=== PATIENT | female | born 1965 | race African-American/Black ===

== ENCOUNTER 2017-05-07 00:48 | Emergency (ER) | payer SELFPAY ==
[~2017-05-07] VITALS: Ht 160 cm; Wt 72.6 kg
--- NOTE | 2017-05-07 01:06 | PHYS DOC ---
Adult General HPI HPI Patient is a 52 year old F who presents with right upper quadrant pain and nausea and vomiting. Patient states [facility] had worsening symptoms tonight with increased pain nausea and vomiting. Patient called EMS and they wanted to go [facility] however the [facility]. Patient denies any fevers. Patient denies any altered mental status. Patient denies any diarrhea. Patient denies any chest pain or shortness of breath. Review of Systems Review of Systems GEN: Denies fevers, chills, sweats HEENT: Denies blurred vision, sore throat CV: Denies chest pain RESP: Denies shortness of air, cough GI: Right upper quadrant pain with nausea and vomiting NEURO: Denies confusion, dizziness MSK: Denies weakness, joint pain/swelling Current Medications Current Medications Current Medications Medications (Trade) Dose Ordered Sig/Loki Start Time Stop Time Status Last Admin Dose Admin Hydromorphone HCl (Dilaudid) 1 mg 1X ONCE 05/07/17 01:15 05/07/17 01:16 UNV Ondansetron HCl (Zofran Odt) 4 mg 1X ONCE 05/07/17 01:15 05/07/17 01:16 UNV Sodium Chloride 1,000 ml @ 1,000 mls/hr 1X ONCE 05/07/17 01:15 05/07/17 02:14 UNV Physical Exam Physical Exam GEN.: No apparent distress. Alert and oriented. HEENT: Head is normocephalic, atraumatic NECK: Supple. LUNGS: CTAB. HEART: RRR, S1, S2 present. Peripheral pulses intact ABDOMEN: Soft, right upper quadrant tenderness palpation, with rebound tenderness. Positive bowel sounds. EXTREMITIES: Without any cyanosis. NEUROLOGIC: Normal speech, normal tone PSYCHIATRIC: Normal affect, normal mood. SKIN: No ulcerations Current Patient Data Lab Results Laboratory Tests Test 05/07/17 01:16 White Blood Count 6.9 x10^3/uL Red Blood Count 4.63 x10^6/uL Hemoglobin 11.8 g/dL Hematocrit 35.9 % Mean Corpuscular Volume 78 fL Mean Corpuscular Hemoglobin 26 pg Mean Corpuscular Hemoglobin Concent 33 g/dL Red Cell Distribution Width 16.9 % Platelet Count 231 x10^3/uL Neutrophils (%) (Auto) 60 % Lymphocytes (%) (Auto) 29 % Monocytes (%) (Auto) 6 % Eosinophils (%) (Auto) 4 % Basophils (%) (Auto) 1 % Neutrophils # (Auto) 4.1 x10^3uL Lymphocytes # (Auto) 2.0 x10^3/uL Monocytes # (Auto) 0.4 x10^3/uL Eosinophils # (Auto) 0.3 x10^3/uL Basophils # (Auto) 0.1 x10^3/uL Sodium Level 147 mmol/L Potassium Level 3.8 mmol/L Chloride Level 112 mmol/L Carbon Dioxide Level 29 mmol/L Anion Gap 6 Blood Urea Nitrogen 17 mg/dL Creatinine 0.9 mg/dL Estimated GFR (Cockcroft-Gault) 66.0 BUN/Creatinine Ratio 19 Glucose Level 84 mg/dL Calcium Level 8.1 mg/dL Total Bilirubin 0.1 mg/dL Aspartate Amino Transf (AST/SGOT) 21 U/L Alanine Aminotransferase (ALT/SGPT) 20 U/L Alkaline Phosphatase 99 U/L Total Protein 6.6 g/dL Albumin 2.7 g/dL Albumin/Globulin Ratio 0.7 Lipase 133 U/L Current Medications Medications (Trade) Dose Ordered Sig/Loki Route PRN Reason Start Time Stop Time Status Last Admin Dose Admin Sodium Chloride 1,000 ml @ 1,000 mls/hr 1X ONCE IV 05/07/17 01:15 05/07/17 02:14 DC 05/07/17 01:29 Ondansetron HCl (Zofran Odt) 4 mg 1X ONCE PO 05/07/17 01:15 05/07/17 01:47 DC 05/07/17 01:29 Hydromorphone HCl (Dilaudid) 1 mg 1X ONCE IV 05/07/17 01:15 05/07/17 01:47 DC 05/07/17 01:28 EKG EKG 0125: Normal sinus rhythm rate of 62 no STEMI [] Radiology/Procedures Radiology/Procedures Ultrasound right upper quadrant: , Bile duct measuring 9.7 mm, but her wall measuring 3.1 mm, multiple gallstones seen, no pericholecystic fluid [] Course & Med Decision Making Course & Med Decision Making Pertinent Labs and Imaging studies reviewed. (See chart for details) ED course: Patient was seen and examined in the emergency room on arrival CBC, CMP, UA, ultrasound right upper quadrant, lipase was ordered 0200: Updated patient on plan to admit to [facility] for her gallbladder 0210: Paged general surgery and hospitalist at [facility] 0225: Discussed CC/HP/PMH with Dr. Momin and recommends admit to [facility] and place him on consult 0233: Discussed CC/HP/PMH with Dr. Eng and recommends admit [] [] Dragon Disclaimer Dragon Disclaimer This chart was dictated in whole or in part using Voice Recognition software in a busy, high-work load, and often noisy Emergency Department environment. It may contain unintended and wholly unrecognized errors or omissions. Departure Departure: Impression: Primary Impression: Cholelithiasis Additional Impression: Right upper quadrant abdominal pain Disposition: 02 XFER SHT-TRM HOSP (Dr. Eng) Condition: IMPROVED Problem Qualifiers Primary Impression: Cholelithiasis Cholelithiasis location: gallbladder Cholecystitis presence: without cholecystitis Biliary obstruction: with biliary obstruction Qualified Codes: K80.21 - Calculus of gallbladder without cholecystitis with obstruction DONOVAN GUY DO May 07, 2017 01:06
[2017-05-07] MEDS ORDERED: HYDROmorphone PF 1 MG/ML DISP.SYRIN IV ONE (01:15)
[2017-05-07] MEDS ORDERED: ONDANSETRON ODT 4 MG TAB.RAPDIS PO ONE (01:15)
[2017-05-07] MEDS ORDERED: IV NORMAL SALINE 1,000ML 1,000 ML IV ONE (01:15)
[2017-05-07 01:31] LABS: BASO # 0.1 x10^3/uL (0.0-0.2); BASO % 1 % (0-3); EOS # 0.3 x10^3/uL (0.0-0.7); EOS % 4 % (0-3); HEMATOCRIT 35.9 % (36.0-47.0); HEMOGLOBIN 11.8 g/dL (12.0-15.5); LYMPH % 29 % (24-48); MEAN CORPUSCULAR HEMOGLOBIN 26 pg (25-35); MEAN CORPUSCULAR HGB CONC 33 g/dL (31-37); MEAN CORPUSCULAR VOLUME 78 fL (79-100); MONO # 0.4 x10^3/uL (0.0-1.1); MONO % 6 % (0-9); NEUT # 4.1 x10^3uL (1.8-7.7); NEUT % 60 % (31-73); PLATELET COUNT 231 x10^3/uL (140-400); RED BLOOD COUNT 4.63 x10^6/uL (3.50-5.40); RED CELL DISTRIBUTION WIDTH 16.9 % (11.5-14.5); WHITE BLOOD COUNT 6.9 x10^3/uL (4.0-11.0)
[2017-05-07 01:42] LABS: ALBUMIN 2.7 g/dL (3.4-5.0); ALBUMIN/GLOBULIN RATIO 0.7 (1.0-1.7); CALCIUM 8.1 mg/dL (8.5-10.1); CREATININE 0.9 mg/dL (0.6-1.0); TOTAL BILIRUBIN 0.1 mg/dL (0.2-1.0); TOTAL PROTEIN 6.6 g/dL (6.4-8.2)
[2017-05-07 01:53] LABS: POTASSIUM 3.8 mmol/L (3.5-5.1)
--- NOTE | 2017-05-07 02:01 | EKG ---
[address] [address] Test Date: 2017-05-07 Test Time: 01:22:16 Pat Name: DOMINICK MIRANDA Department: Room: Gender: F Test Rack Operator: TIANA : [id number] Requested By: DONOVAN GUY Order Number: [id number] Reading MD: Dickson Bermudez Measurements Intervals Hillister Rate: 62 P: 59 MI: 178 QRS: 72 QRSD: 94 T: 75 QT: 416 QTc: 424 Interpretive Statements SINUS RHYTHM Electronically Signed On 05-08-2017 15:07:03 CDT by Dickson Bermudez
[2017-05-07 03:15] VITALS: BP 105/67
--- NOTE | 2017-05-07 03:39 | RAD ---
Abdominal ultrasound right upper quadrant: Reason for examination: Right upper quadrant pain with nausea and vomiting for 3 hours. The liver appears be normal in size at 16.9 cm and homogeneous in echogenicity. There is fatty infiltration in the liver without a focal lesion. Pancreas is poorly visualized due to bowel gas. Visualized portion of the inferior vena cava shows no gross abnormality. Gallbladder appears be filled with gallstones gallbladder wall is mildly thickened at 3.6 mm. No pericholecystic fluid is present but there is a positive Parker sign. Common bile duct is dilated at 9.7 mm. The right kidney measures 9.8 x 5.5 x 4.3 cm in greatest dimension and shows normal cortical medullary differentiation and good vascular flow. There is no right renal mass. IMPRESSION: Cholelithiasis with cholecystitis. Dilated common bile duct at 9.7 mm. Positive Parker sign. Fatty infiltration in the liver. Electronically signed by: Mer Freeman MD (05/07/2017 3:36 AM) [facility]
== END 2017-05-07 03:19 | disposition short-term general hospital (02) ==
LOC: ER 00:48
DX: K80.21 Calculus of gallbladder without cholecystitis with obstruction (principal)
CPT/HCPCS: 36415; 76705; 80053; 83690; 85027; 93005; 96361; 96374; 99285; J1170; Q0162; J7030

== ENCOUNTER → 2020-05-08 | Outpatient (CLI) | payer OTHER ==
--- NOTE | 2020-05-08 16:33 | RAD ---
DATE: 05/08/2020 9:56 AM EXAM: DIGITAL SCREEN BILAT W/CAD HISTORY: Screening COMPARISON: None. This will serve as a new baseline. Bilateral full field craniocaudal and mediolateral oblique images were obtained using digital technique. This study was interpreted using Computerized Aided Detection (CAD). FINDINGS: Breast Density: SCATTERED The breast parenchyma shows scattered fibroglandular densities. Breast parenchyma level B No suspicious masses, microcalcifications or architectural distortion is present to suggest malignancy in either breast. The visualized axillae are unremarkable. IMPRESSION: No mammographic evidence of malignancy. BI-RADS CATEGORY: 1 NEGATIVE RECOMMENDED FOLLOW-UP: 12M 12 MONTH FOLLOW-UP Annual screening mammography is recommended, unless clinically indicated sooner based on symptoms or change in physical exam. PQRS compliance statement: Patient information was entered into a reminder system with a target due date for the next mammogram. Mammography is a sensitive method for finding small breast cancers, but it does not detect them all and is not a substitute for careful clinical examination. A negative mammogram does not negate a clinically suspicious finding and should not result in delay in biopsying a clinically suspicious abnormality. "Our facility is accredited by the [employer] Mammography Program."
== END | disposition home or self-care (01) ==
LOC: MAMMO 09:22
PROVIDERS: ATTEND Nurse Practitioner Family
DX: Z12.31 Encounter for screening mammogram for malignant neoplasm of breast (principal)
CPT/HCPCS: 77067

== ENCOUNTER 2022-01-11 07:01 | Emergency (ER) | payer SELFPAY ==
[~2022-01-11] VITALS: Ht 160 cm; Wt 59.0 kg
[2022-01-11 07:04] VITALS: BP 105/67
--- NOTE | 2022-01-11 07:04 | PHYS DOC ---
Past History Past Medical History: Anxiety, Depression Past Surgical History: No Surgical History Smoking: Non-smoker Alcohol Use: Occasionally Drug Use: None General Adult HPI: HPI: Patient is a 56-year-old female who arrives from home, by EMS, for evaluation of reported anxiety. She has a history of anxiety issues, reportedly takes medicat ions for depression as well. She is unable to articulate any details of her illness, is unable to articulate any details of what medication she takes. She appears to be intoxicated with alcohol, admits to drinking alcohol with last drink consumed about 30 minutes prior to arrival. She reports that she does not drink daily, though she does drink frequently. She is requesting "detox." She denies any history of alcohol withdrawal seizures. Denies use of illicit drugs. [facility], she had reportedly requested to go to the [facility], but she was diverted here. She is upset about this, repeatedly questioning why she was sent here instead of going to the [facility]. She denies any physical pain or discomfort. She brings with her multiple large bags, including a large black trash bag full of her belongings. She reports that she was supposed to go to the [facility]. She reports that she lives alone. She denies any domestic violence or domestic abuse. She is a very poor historian, and she is unwilling to participate meaningfully in her care at this time. Denies chest pain or dyspnea. She denies abdominal pain or nausea vomiting. She denies any injury or trauma. Denies headache. Review of Systems: Review of Systems: Constitutional: Denies fever or chills HENT: Denies nasal congestion or sore throat Respiratory: Denies cough or shortness of breath Cardiovascular: Denies chest pain GI: Denies abdominal pain, nausea, vomiting : Denies urinary symptom Musculoskeletal: Denies back pain or joint pain Integument: Denies rash Neurologic: Denies headache, focal weakness or sensory changes. She denies dizziness, head injury, syncope, loss of consciousness. Psychiatric: Anxiety, depression, alcohol use. She denies SI or HI symptoms. Allergies: Allergies: Allergies Coded Allergies Type Severity Reaction Last Updated Verified No Known Drug Allergies 05/07/17 No Physical Exam: PE: Constitutional: Well developed, well nourished, no acute distress, non-toxic appearance. Somewhat disheveled. HENT: Normocephalic, atraumatic, facial oral swelling. No evidence of dental trauma. Mucous membranes are moist. Oropharynx is patent and clear. External ears are normal bilaterally Eyes: PERRL, EOMI, conjunctiva normal, no discharge. Sclera are anicteric. Bilateral horizontal nystagmus. Neck: Normal range of motion, no tenderness, supple, no stridor. Trachea is midline. No meningismus. Cardiovascular:Heart rate regular rhythm, was 2 radial and +2 posterior tibial pulses bilaterally. Lungs & Thorax: Bilateral breath sounds clear to auscultation [] Abdomen: Abdomen is soft, nondistended, nontender to palpation. No palpable mass organomegaly. No CVA tenderness Skin: Warm, dry, no erythema, no rash. [] Back: No tenderness, no CVA tenderness. [] Extremities: No tenderness, no cyanosis, no clubbing, ROM intact, no edema. No calf tenderness. Neurologic: She is drowsy, sleepy, intoxicated appearing, oriented x3, no facial asymmetry, moves all 4 extremities equally, localizes pain, gag reflex intact, gross motor function normal, speech is slightly slurred Psychologic: Affect is flat, she appears to be intoxicated, she is somewhat uncooperative, denies SI or HI. EKG: EKG: [] Radiology/Procedures: Radiology/Procedures: [] Heart Score: C/O Chest Pain: No Risk Factors: Risk Factors: DM, Current or recent (<one month) smoker, HTN, HLP, family history of CAD, obesity. Risk Scores: Score 0 - 3: 2.5% MACE over next 6 weeks - Discharge Home Score 4 - 6: 20.3% MACE over next 6 weeks - Admit for Clinical Observation Score 7 - 10: 72.7% MACE over next 6 weeks - Early Invasive Strategies Course & Med Decision Making: Course & Med Decision Making Pertinent Labs and Imaging studies reviewed. (See chart for details) Patient requested something for her anxiety. She normally takes Xanax at home. I ordered 0.25 mg of Xanax for her here. We were able to contact the [facility], and they request that she be discharged from here, [facility] have another medical screening exam and evaluation there, in order to be placed at [facility]. I was able to speak with the on-call ED physician, who acknowledged that this is their protocol, he agrees with the plan for us to discharge her from here and she would be seen there. The patient is comfortable with this plan. She is not suicidal homicidal. She is ambulatory with a steady gait. She is awake, alert, oriented x3. She no longer appears to be drowsy. She will be discharged directly to the [facility] for placement and further care. Dragon Disclaimer: Dragarnold Disclaimer: This electronic medical record was generated, in whole or in part, using a voice recognition dictation system. Departure Departure: Impression: Primary Impression: Anxiety Additional Impression: Alcohol use Disposition: HOME / SELF CARE / HOMELESS Condition: STABLE Referrals: PCP,TROY (PCP) Patient Instructions: Anxiety and Panic Attacks Additional Instructions: These return to the ER if you develop any significant pain, if you are acutely injured or sustained trauma, if you have a severe headache, chest pain, shortness of breath, severe abdominal pain, uncontrolled vomiting or other concerns. [facility] and the [facility] workers there. Follow-up with your primary care physician. NICCI WOLFE DO Jan 11, 2022 07:04
[2022-01-11] MEDS ORDERED: MVI, ADULT NO.4 WITH VIT K 10 ML, FOLIC ACID INJ 1 MG, THIAMINE INJ 100 MG in IV RINGER... IV ONE (07:15)
[2022-01-11 07:41] LABS: BASO # 0.1 x10^3/uL (0.0-0.2); BASO % 1 % (0-3); EOS # 0.2 x10^3/uL (0.0-0.7); EOS % 3 % (0-3); HEMATOCRIT 43.8 % (36.0-47.0); HEMOGLOBIN 14.8 g/dL (12.0-15.5); LYMPH # 2.8 x10^3/uL (1.0-4.8); LYMPH % 53 % (24-48); MEAN CORPUSCULAR HEMOGLOBIN 27 pg (25-35); MEAN CORPUSCULAR HGB CONC 34 g/dL (31-37); MEAN CORPUSCULAR VOLUME 80 fL (79-100); MONO # 0.4 x10^3/uL (0.0-1.1); MONO % 8 % (0-9); NEUT # 1.8 x10^3uL (1.8-7.7); NEUT % 35 % (31-73); PLATELET COUNT 254 x10^3/uL (140-400); RED BLOOD COUNT 5.46 x10^6/uL (3.50-5.40); RED CELL DISTRIBUTION WIDTH 14.3 % (11.5-14.5); WHITE BLOOD COUNT 5.2 x10^3/uL (4.0-11.0)
[2022-01-11 07:50] LABS: CALCIUM 9.2 mg/dL (8.5-10.1); CREATININE 0.7 mg/dL (0.6-1.0); GFR 105.1; MAGNESIUM 1.9 mg/dL (1.8-2.4); POTASSIUM 3.4 mmol/L (3.5-5.1)
[2022-01-11 07:55] LABS: ACETAMIN < 2.0 mcg/mL (10-30); ETHANOL 67 mg/dL (0-10); SALIC 2.9 mg/dL (2.8-20.0)
[2022-01-11 08:34] LABS: BARBITURATES NEG (NEG); BENZODIAZEPINES NEG (NEG); CANNABINOIDS POS (NEG); COCAINE POS (NEG); METHADONE NEG (NEG); OPIATES NEG (NEG); PHENCYCLIDINE NEG (NEG)
[2022-01-11 08:40] LABS: CLARITY,URINE CLEAR; COLOR,URINE YELLOW; GLUCOSE,URINE NEG (NEG)
[2022-01-11 08:41] LABS: BACTERIA,URINE MANY /HPF (0-FEW); NITRITE,URINE POS (NEG); TRICHOMONAS,URINE PRESENT
[2022-01-11 08:43] LABS: SQUAMOUS EPITHELIAL CELL,UR MANY /LPF
[2022-01-11 08:47] LABS: AMPHETAMINE/METHAMPHETAMINE NEG (NEG)
[2022-01-11] MEDS ORDERED: ALPRAZolam 0.25 MG TABLET PO ONE (09:00)
== END 2022-01-11 10:34 | disposition home or self-care (01) ==
LOC: ER 07:01
DX: F41.9 Anxiety disorder, unspecified (principal); F10.10 Alcohol abuse, uncomplicated; F32.9 Major depressive disorder, single episode, unspecified; Y90.3 Blood alcohol level of 60-79 mg/100 ml
CPT/HCPCS: 36415; 80048; 80307; 80329; 81001; 83735; 85025; 87077; 87086; 87186; 96365; 99284; G0480; J7120